=== PATIENT | female | born 1985 | race Caucasian/White ===

== ENCOUNTER → 2020-06-30 13:17 | Outpatient (CLI) | payer OTHER, SELFPAY ==
--- NOTE | ~2020-06-30 | US_ITS ---
EXAMINATION: US OB <= 14 weeks fetus DATE: 06/30/2020 13:43 INDICATION: Gestational dating TECHNIQUE: Real-time transabdominal and transvaginal obstetric ultrasound. FINDINGS: No prior studies for comparison. The uterus measures 10.7 x 6.6 x 8.3 cm. There is an intrauterine gestational sac, with pole id entified. The crown rump length measures 3.4 cm, which correlates with a estimated gestational age o f 10 weeks 2 days. heart tones are identified measuring 178 BPM. Ovaries are not visualized. IMPRESSION: 1. SL IUP with an EGA of 10 weeks, 2 days (EDC by current ultrasound of 01/24/2021). Reviewed, dictated and finalized at location A. IMPRESSION: 1. SL IUP with an EGA of 10 weeks, 2 days (EDC by current ultrasound of 021).
== END ==
PROVIDERS: Visit Provider Obstetrics & Gynecology
DX: N92.5 Other specified irregular menstruation (principal); Z3A.10 10 weeks gestation of pregnancy
CPT/HCPCS: 76801

== ENCOUNTER 2020-07-16 20:15 | Observation (INO) | payer OTHER, SELFPAY ==
[2020-07-16 20:06] VITALS: BP 136/64; PULSE 74; RESP 18; TEMP 36.6; O2SAT 100
--- NOTE | 2020-07-16 20:11 | PC.NURSE ---
OB was called and they determined this patient should be brought to them. After triage, this patient was taken to OB via wheelchair by forensic science technician.
[2020-07-16 20:21] VITALS: TEMP 36.6
[2020-07-16 20:22] VITALS: BP 115/79; PULSE 157
[2020-07-16 20:26] VITALS: PULSE 66; O2SAT 100
[2020-07-16 20:30] VITALS: BMI 28.3
--- NOTE | 2020-07-16 21:31 | OBADM ---
This patient, Nikki Tomlinson, admitted to the OB room OB Post 117 for observation. Patient/family oriented to hospital policies and general routines including ID bracelet, bed and alarms, visiting hours, pain management, procedures, bathroom and other care routines, personal items, smoking policy, room service/diet, and visiting hours. Patient/Family are encouraged to report perceived risks to care and to ask questions if they do not understand what they are told or what they should do.
--- NOTE | 2020-07-30 17:24 | PM.OBTRLD ---
OB - Triage/Final Diagnosis Visit Information Comments/Additional reasons for admission: I have assessed the risk for this patient, Nikki Tomlinson, and determined that she would benefit from observation care. Final Diagnosis (1) Vaginal discharge during : Code(s): O26.899 - Other specified related conditions, unspecified trimester; N89.8 - Other specified noninflammatory disorders of vagina Status: Acute
== END 2020-07-16 21:14 | disposition home or self-care (01) ==
PROVIDERS: Admitting Provider Obstetrics & Gynecology; PCP Family Medicine; Visit Provider Obstetrics & Gynecology
DX: O26.891 Other specified pregnancy related conditions, first trimester (principal); N89.8 Other specified noninflammatory disorders of vagina; Z3A.12 12 weeks gestation of pregnancy
CPT/HCPCS: 84112; G0378; G0379

== ENCOUNTER 2020-09-06 07:54 | Emergency (ER) | payer OTHER, SELFPAY ==
[2020-09-06 07:56] VITALS: BP 137/77; PULSE 95; RESP 16; TEMP 36.9; O2SAT 100
[2020-09-06 09:18] VITALS: BP 112/57; PULSE 70; RESP 16; O2SAT 100
--- NOTE | 2020-09-06 09:21 | PC.NURSE ---
Pt assisted to bathroom to urinate. She denies vaginal bleeding or blood in urine
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
[2020-09-06 10:48] VITALS: BP 113/55; PULSE 81; RESP 15; O2SAT 100
== END 2020-09-06 10:52 | disposition home or self-care (01) ==
PROVIDERS: Emergency Provider Emergency Medicine; PCP Family Medicine
DX: O26.892 Other specified pregnancy related conditions, second trimester (principal); V43.53XA Car driver injured in collision with pick-up truck in traffic accident, initial encounter; Y92.410 Unspecified street and highway as the place of occurrence of the external cause
CPT/HCPCS: 99282

== ENCOUNTER → 2020-09-20 16:34 | Outpatient (CLI) | payer OTHER, SELFPAY ==
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
== END ==
PROVIDERS: PCP Family Medicine; Visit Provider Family Medicine
DX: O9A.212 Injury, poisoning and certain other consequences of external causes complicating pregnancy, second trimester (principal); M54.6 Pain in thoracic spine; V89.2XXA Person injured in unspecified motor-vehicle accident, traffic, initial encounter; Z3A.20 20 weeks gestation of pregnancy; M50.93 Cervical disc disorder, unspecified, cervicothoracic region
CPT/HCPCS: 72070

== ENCOUNTER 2020-12-21 13:30 | Outpatient (RCR) | payer OTHER, SELFPAY ==
[2020-10-12 14:54] VITALS: BP_SYST 170
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
--- NOTE | 2020-10-17 12:10 | PCPTNOTE ---
Patient called and states she will not be able to make it to appointment due to a work meeting.
--- NOTE | 2020-11-09 09:53 | PCPTNOTE ---
Patient called & cancelled scheduled appointment this date due to having to work.
--- NOTE | 2020-11-27 13:49 | PCPTNOTE ---
Patient called & cancelled scheduled appointment this date due to work.
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
== END 2020-12-22 12:52 | disposition home or self-care (01) ==
LOC: ANHPT 13:30
PROVIDERS: PCP Family Medicine; Visit Provider Family Medicine
DX: M54.6 Pain in thoracic spine (principal); M54.30 Sciatica, unspecified side; V87.7XXA Person injured in collision between other specified motor vehicles (traffic), initial encounter
CPT/HCPCS: 97014; 97110; 97140; 97162; 97530; G0283

== ENCOUNTER 2021-01-17 08:05 | Inpatient (IN) | payer OTHER, SELFPAY ==
[2021-01-17] VITALS (168 sets, daily range): BP systolic 62–170; BP diastolic 34–127; PULSE 65–130; RESP 16–18; TEMP 36.6–37.3; O2SAT 87–100; BMI 33.0
[2021-01-17] MEDS: OXYTOCIN 30 UNITS/NS 500 ML 30 UNITS/500 ML BAG IV CONT (09:10)
[2021-01-17] MEDS: LACTATED RINGERS 1,000 ML 125 ML IV CONT ×2 (09:10→14:15)
[2021-01-17 09:12] LABS: Basophils Absolute Auto 0.1 K/mm3 (0.0-0.1); Basophils Percent Auto 0.5 % (0.2-1.2); Eosinophils Absolute Auto 0.1 K/mm3 (0-0.3); Eosinophils Percent Auto 0.6 % (0-4.4); Hematocrit 37.3 % (37.0-47.0); Hemoglobin 12.4 g/dL (12.0-15.0); Immature Granulocyte Absolute 0.19 K/mm3 (0.00-0.031); Immature Granulocyte Percent A 1.7 % (0-0.5); Lymphocytes Absolute Auto 1.93 K/mm3 (0.9-3.2); Lymphocytes Percent Auto 17.4 % (18.3-44.2); Mean Corpuscular HGB Conc 33.2 g/dl (32-36); Mean Corpuscular Hemoglobin 31.9 pg (26-34); Mean Corpuscular Volume 95.9 fl (80-100); Mean Platelet Volume 10.2 fl (7.4-10.4); Monocytes Absolute Auto 0.9 K/mm3 (0.1-0.6); Monocytes Percent Auto 7.8 % (2.6-8.5); Platelet Count Result 156 k/mm3 (150-375); Red Blood Count 3.89 M/mm3 (4.2-5.4); Red Cell Distribution Width 14.2 % (11.5-14.5); White Blood Count 11.1 K/mm3 (4.5-10.0)
--- NOTE | 2021-01-17 09:19 | LDADM ---
This patient, Nikki Tomlinson, was admitted to Labor/Delivery/Recovery 109 on 01/17/21 at 08:05. Plans for labor, pain management and were discussed with patient. Patient/family oriented to hospital policies and general routines including ID bracelet, bed and alarms, visiting hours, pain management, procedures, bathroom and other care routines, personal items, smoking policy, room service/diet and guest tray routines, infant security routines, and visiting hours. Patient/Family are encouraged to report perceived risks to care and to ask questions if they do not understand what they are told or what they should do. See OBIX for further documentation.
--- NOTE | 2021-01-17 12:22 | PM.IMHP ---
H&P: HPI History of Present Illness Date/Time: 01/17/21 12:06 Nikki is a 35yo @ 39.0wks (GRABIEL 01/24/21) who presents for elective induction of labor. She reports good movement. No VB or LOF. She has been having irregular contractions. She has had regular care. Her is complicated by: - Undesired future fertility; desires LSC salpingectomy - CMV non-immune - Mild anemia on iron daily - Anxiety/depression; previously on celexa Chief Complaint: induction of labor Review of Systems Review of Systems: All systems reviewed & are unremarkable except as noted in HPI and below (HPI) [facility] Past Medical History Medical History (Updated 01/17/21 @ 12:11 by Porsha Henson MD) Anxiety Depression Hyperhidrosis Retinitis pigmentosa Rosacea Family History Family History Mother Diabetes mellitus Hypertension Patient's mother is in good health Father Hypertension Patient's father is in good health Grandparent Cerebrovascular accident Family history of lung cancer Social History Social History Smoking status: Never smoker Second hand tobacco smoke exposure: No Alcohol intake: current Drinks per week: 1 Substance use: never Substance use type: does not use Gender identity (if verbalized by the patient): Female Spiritual care concerns: No Agree to blood products: Yes Meds Home Medications and Allergies Home Medications Medication Instructions Recorded Confirmed Type -xrod fum-folic ac-om3 1 pkg PO DAILY 07/16/20 01/17/21 History famotidine 40 mg PO DAILY 12/28/20 12/28/20 History Allergies Allergy/AdvReac Type Severity Reaction Status Date / Time Penicillins Allergy Unknown Rash Verified 09/18/20 08:54 Sulfa (Sulfonamide Allergy Unknown Rash Verified 09/18/20 08:54 Antibiotics) Vital Signs Vital Signs - 24 hr 01/17/21 09:00 01/17/21 09:31 01/17/21 10:00 Temperature 37.1 C Pulse Rate 86 88 Blood Pressure 126/71 125/68 01/17/21 10:31 01/17/21 11:00 01/17/21 11:30 Temperature Pulse Rate 81 81 69 Blood Pressure 106/59 L 105/54 L 113/60 01/17/21 12:00 Temperature Pulse Rate 90 Blood Pressure 128/75 Exam Const: General: cooperative, healthy appearing, comfortable and no acute distress Resp: Effort & Inspection: normal respiratory effort Cardio: Rate: regular rate GI: Inspection: non-distended GI Palp: No abdominal tenderness and Yes Soft to palpation : Other: FHT's: 140's/ mod alex/ + accels/ no decels - cat 1 TOCO: ctx's q2min Presentation: cephalic Membranes: AROM, clear 1220 Cervix: 3.5/50/-3 Skin: General skin exam: normal color Neuro: General: patient oriented x3 Extrem: General: normal to inspection Psych: Appearance: grossly normal Affect: normal affect Attitude: cooperative H&P: Results Labs Labs: Short CBC 01/17/21 Range/Units 08:55 WBC 11.1 H (4.5-10.0) K/mm3 Hgb 12.4 (12.0-15.0) g/dL Hct 37.3 (37.0-47.0) % Plt Count 156 (150-375) k/mm3 Assessment and Plan Assessment and plan (1) Encounter for elective induction of labor: Code(s): Z34.90 - Encounter for supervision of normal , unspecified, unspecified trimester Status: Acute (2) : Qualifiers: Weeks of gestation: 39 weeks Qualified Code(s): Z3A.39 - 39 weeks gestation of Code(s): Z34.90 - Encounter for supervision of normal , unspecified, unspecified trimester Status: Acute Additional Plan - Admitted to L&D for IOL - Pitocin per protocol - AROM performed on this exam - Continuous monitoring - Anesthesia consult PRN pain - GBS negative
--- NOTE | 2021-01-17 12:22 | WPDHPUPDATE1 ---
History and Physical Update Update Date/Time: 01/17/21 12:22 History and Physical has been reviewed, including an updated exam of the patient. There are NO changes in the patient's condition. Risks, benefits, and alternatives have been discussed and questions answered. Patient agrees to proceed with procedure.
--- NOTE | 2021-01-17 16:13 | WPDANESEPP ---
Anes - Eval Pre Procedure Procedure: labor pain management Date/Time: 01/17/21 16:13 Surgeon: geovanna Preop Diagnosis: pain during labor Pre Op Diagnosis: iol Patient Data Age: 35 Gender: F Height: 1.63 m Weight: 87.5 kg Last Vital Signs Temp 99.1 F 01/17/21 12:00 Pulse 70 01/17/21 16:00 BP 89/38 L 01/17/21 16:00 Pulse Ox 100 01/17/21 16:13 Allergies Allergy/AdvReac Type Severity Reaction Status Date / Time Penicillins Allergy Unknown Rash Verified 09/18/20 08:54 Sulfa (Sulfonamide Allergy Unknown Rash Verified 09/18/20 08:54 Antibiotics) Home Medications Medication Instructions Recorded Confirmed Type [id number] fum-folic ac-om3 1 pkg PO DAILY 07/16/20 01/17/21 History famotidine 40 mg PO DAILY 12/28/20 12/28/20 History Laboratory Tests 01/17/21 01/17/21 01/17/21 08:55 08:55 08:55 WBC 11.1 K/mm3 H K/mm3 (4.5-10.0) RBC 3.89 M/mm3 L M/mm3 (4.2-5.4) Hgb 12.4 g/dL g/dL (12.0-15.0) Hct 37.3 % % (37.0-47.0) MCV 95.9 fl fl (80-100) MCH 31.9 pg pg (26-34) MCHC 33.2 g/dl g/dl (32-36) RDW 14.2 % % (11.5-14.5) Plt Count 156 k/mm3 k/mm3 (150-375) MPV 10.2 fl fl (7.4-10.4) Immature Gran % (Auto) 1.7 % H % (0-0.5) Neut % (Auto) 72.0 % % (45.5-73.1) Lymph % (Auto) 17.4 % L % (18.3-44.2) Roosevelt % (Auto) 7.8 % % (2.6-8.5) Eos % (Auto) 0.6 % % (0-4.4) Baso % (Auto) 0.5 % % (0.2-1.2) Lymph # (Auto) 1.93 K/mm3 K/mm3 (0.9-3.2) Roosevelt # (Auto) 0.9 K/mm3 H K/mm3 (0.1-0.6) Eos # (Auto) 0.1 K/mm3 K/mm3 (0-0.3) Baso # (Auto) 0.1 K/mm3 K/mm3 (0.0-0.1) Abs Immat Gran (auto) 0.19 K/mm3 H K/mm3 (0.00-0.031) Absolute Neuts (auto) 8.0 K/mm3 H K/mm3 (1.3-6.7) Absolute Nucleated RBC 0.0 K/mm3 K/mm3 (0.0-0.012) Nucleated RBC % 0.0 % % (0.0-0.2) RPR Pending Blood Type O Positive Antibody Screen Negative : gestational age (edc 01/24/21) Patient hx anesthesia problems: none Family hx anesthesia problems: none Results Review: All pre-operative results and documents have been reviewed as part of the pre-operative evaluation. [facility] Past Medical History Medical History (Updated 01/17/21 @ 16:13 by Shanti Murphy CRNA) Anxiety Depression Hyperhidrosis Retinitis pigmentosa Rosacea Family History Family History Mother Diabetes mellitus Hypertension Patient's mother is in good health Father Hypertension Patient's father is in good health Grandparent Cerebrovascular accident Family history of lung cancer Social History Social History Smoking status: Never smoker Second hand tobacco smoke exposure: No Alcohol intake: current Drinks per week: 1 Substance use: never Substance use type: does not use Gender identity (if verbalized by the patient): Female Spiritual care concerns: No Agree to blood products: Yes Exam Day of Procedure 01/17/21 16:13
--- NOTE | 2021-01-17 19:04 | PM.OBPNLAB ---
Pain Control Date/time seen: 01/17/21 19:04 Pain control: epidural Pelvic Exam Dilation (cm): 5 Effacement (%): 70 station: -2 Amniotic membrane status: Ruptured Contractions Monitor mode: Internal Contraction frequency: 2 Status status: Category l Assessment and Plan Pitocin rate (mU/min): 18 Assessment: induction ongoing Plan: continuous present management
--- NOTE | 2021-01-17 22:16 | P.PCNOB_ITS ---
OB - Delivery Note Procedure Delivery date: 01/17/21 events: Labor Induction Intrapartal events: None Induction method: per pitocin protocol Delivery augmentation: rupture of membranes Delivery monitor: external FHT and internal uterine Route of delivery: Laceration Description: None Quantitative Blood Loss (ml): 200 Anesthesia type: Epidural Disposition: floor [place] Baby Date of : 01/17/21 Time of : 22:01 Weeks of gestation at delivery: 39 Infant gender: Male Weight (pounds): 7 Weight (ounces): 9 presentation: vertex (occiput posterior) Placenta delivery description: Expressed cord vessel description: 3 Vessels and Delayed Cord Clamping score one minute: 9 score five minutes: 9 Narrative: Nikki progressed to complete dilation and began pushing with good effort. She pushed for approximately 30 minutes. She delivered the head direct occiput posterior over intact perineum. She delivered the infant's shoulders and body without complication. The infant had spontaneous cry and was immediately placed skin to skin. Delayed cord clamping was performed. The umbilical cord was then clamped and cut. With Pitocin running and gentle downward traction on the cord, the placenta delivered without complications. Bimanual massage was performed and good fundal tone with minimal bleeding was noted. Patient was examined and no lacerations were noted. Fundal tone was normal with minimal bleeding. Sponge, lap, instrument, and needle counts were correct at the end of the procedure. Mom and baby were left bonding in the birthing suite in a stable condition.
[2021-01-17] MEDS: OXYTOCIN 30 UNITS/NS 500 ML 30 UNITS/500 ML BAG 125 UNITS IV CONT (22:29)
[2021-01-17] MEDS: IBUPROFEN 600 MG TABLET PO (23:00)
[2021-01-18] VITALS (7 sets, daily range): BP systolic 99–128; BP diastolic 46–82; PULSE 65–88; RESP 16–20; TEMP 36.3–37.4; O2SAT 99–100
[2021-01-18] MEDS: BENZOCAINE 20% AER SPR (*SP) 56 GM CAN 1 SPRAY TOPICAL (00:11)
[2021-01-18] MEDS: WITCH HAZEL 40 PADS 1 PAD TOPICAL (00:11)
--- NOTE | 2021-01-18 00:39 | PC.NURSE ---
Patient transferred to post room # 292 per wheelchair. Support person present. Oriented to unit, room, information board, rooming in, admission packet and security measures. Patient verbalizes understanding.
[2021-01-18] MEDS: LANOLIN (LANSINOH) 7.5 GM CREAM 1 APPLIC TOPICAL (05:28)
[2021-01-18] MEDS: IBUPROFEN 600 MG TABLET PO (05:28)
[2021-01-18 05:45] LABS: Hematocrit 31.7 % (37.0-47.0)
[2021-01-18 06:22] LABS: Rapid Plasma Reagin Non-Reactive (NonReactive)
--- NOTE | 2021-01-18 08:12 | WPDANLDPN2 ---
Anes-Prog Note L&D Date/Time: 01/18/21 08:12 Comfortable throughout: labor and delivery Neuraxial method: epidural Epidural/Spinal procedure site: clean & non-tender Neuro status: Neuro function grossly intact. Cardiovascular status: normal Respiratory status: normal Airway patency: baseline Mental status: baseline Post-Op hydration status: normal Vital Signs: Last Vital Signs Temp 36.7 C 01/18/21 04:30 Pulse 84 01/18/21 04:30 Resp 20 01/18/21 04:30 BP 114/62 01/18/21 04:30 Pulse Ox 100 01/17/21 21:59 Pain score (VAS): 0 I/O: Intake & Output 01/17/21 01/18/21 01/18/21 23:59 07:59 15:59 Output Total 200 137 Balance -200 -137 Post-procedural complaints: none Patient feedback: Patient satisfied with anesthetic care.
--- NOTE | 2021-01-18 08:45 | PC.NURSE ---
Mother called out for assist with feeding, for observation latch is correct. . Infant is able to freely thrust tongue past gum ridge and flange both lips. Skin is intact on both nipples, no redness and bruising noted. Reviewed infant feeding cues, frequencies, duration of feedings, feeding elimination flow sheet, and signs of adequate intake. Demonstrated stimulation techniques to wake for feeding. Assisted with infant to breast. Reviewed positioning/alignment in cross cradle, holding breast in ?U? hold and guided asymmetrical latch on. Reviewed rational for each. able to latch correctly within a few attempts. Infant nursed eagerly with steady draws and frequent swallowing noted, some pausing noted. Reviewed signs of a correct latch, effective nursing and suck swallow ratio. Suggested mother stimulate while feeding to increase stimulation for milk supply, for increased intake and to assist with maintaining deep latch. Infant was able to maintain latch without discomfort to mother. Demonstrated how to adjust latch more deeply while feeding if needed. Nipple care reviewed of lanolin after feedings, warm compresses as needed, gel pads provided and reviewed care and cleaning. Instructed mother to call out for RN assistance if she is unable to latch for feeding or she has discomfort with nursing. Instructed feeding should be initiated three hours from start of last feeding or if feeding cues are noted before. Mother voiced understanding of information shared.
--- NOTE | 2021-01-18 12:40 | PM.OBPNVD ---
OB - PN: Subj Subjective Date/time seen: 01/18/21 12:34 PPD#1 Nikki reports doing well today. She reports cramping pains controlled with PO meds. She reports her bleeding is light. She has tolerated regular diet, ambulated, voided, and passed gas. She is breast feeding without issue. She has already showered. She would like her son to be circumcised. She would like to go home tomorrow. She denies CP, SOB, fever, chills, DOBBINS, vision changes, N/V, palpitations, or dizziness. OB - PN: Obj Data Labs CBC & Chem 7: 01/18/21 05:29 Labs: Laboratory Results - last 24 hr 01/17/21 01/18/21 08:55 05:29 Hgb 11.0 L Hct 31.7 L RPR Non-reactive OB - PN A/P Assessment and Plan (1) Normal vaginal delivery of third : Code(s): O80 - Encounter for full-term uncomplicated delivery Status: Acute Plan day: 1 Plan: routine care and discharge home (tomorrow AM) Comments: - f/u in clinic if 4 wks - ER return precautions: fever, n/v/abd pain, bleeding, signs of HTN - Pelvic rest; take meds as prescribed. Time Spent With Patient Time: Total time spent is greater than 50% in coordination of care (as documented) at patient's floor/unit and/or counseling patient: Review of Systems Review of Systems: All systems reviewed & are unremarkable except as noted in HPI and below (HPI) Exam Const: General: cooperative, healthy appearing, comfortable and no acute distress Resp: Effort & Inspection: normal respiratory effort Auscultation: clear to auscultation bilaterally Cardio: Rate: regular rate GI: Inspection: normal to inspection and non-distended GI Palp: No abdominal tenderness and Yes Soft to palpation Auscultation: normal bowel sounds : Other: fundus firm Skin: General skin exam: normal color Neuro: General: patient oriented x3 Extrem: General: normal to inspection Psych: Appearance: grossly normal Affect: normal affect Attitude: cooperative
[2021-01-18] MEDS: ACETAMINOPHEN 325 MG TABLET 650 MG PO (20:55)
[2021-01-18] MEDS: DIBUCAINE 1% OINTMENT 30 GM TUBE 1 APPLIC TOPICAL (20:57)
[2021-01-19 08:55] VITALS: BP 138/67; PULSE 65; RESP 16; TEMP 36.7; O2SAT 100
[2021-01-20 09:38] VITALS: BP 134/73; PULSE 74; RESP 20; TEMP 36.8; O2SAT 100
--- NOTE | 2021-01-28 13:40 | PM.OBDSVD ---
DS: Admitting Diagnosis Discharge Date 01/19/21 Admitting Diagnosis induction of labor DS: Discharge Diagnosis Discharge Diagnosis (1) Normal vaginal delivery of third : Code(s): O80 - Encounter for full-term uncomplicated delivery Status: Acute OB - DS: Summary OB Procedures : Ultrasound OB Procedures Intrapartum: Spontaneous Vag Delivery OB Procedures: : None Peripartum Data Delivery Method: Natural Vaginal Laceration Description: None complications: none 1: Gender: Male Disposition of : home Status at Discharge Functional status at discharge: independent ambulation Overall status at discharge: patient is back to baseline Time Spent with Patient Time attestation: Total time spent providing and/or coordinating discharge services: Time spent: Less than 30 minutes Exam Const: General: cooperative, healthy appearing, comfortable and no acute distress Resp: Effort & Inspection: normal respiratory effort Auscultation: clear to auscultation bilaterally Cardio: Rate: regular rate GI: Inspection: normal to inspection and non-distended GI Palp: No abdominal tenderness and Yes Soft to palpation Auscultation: normal bowel sounds : Other: fundus firm Skin: General skin exam: normal color Neuro: General: patient oriented x3 Extrem: General: normal to inspection Psych: Appearance: grossly normal Affect: normal affect Attitude: cooperative Discharge Plan Discharge Attending physician on discharge: Porsha Henson Discharging Clinician: Porsha Henson Anticipated Discharge Date/Time: 01/19/21 08:00 Patient Disposition: Home, Self-Care Activity: pelvic rest Diet: as tolerated and regular Discharge Instructions: Education: Mom and Baby Guide Given to: Mother Follow-Up: Call your delivering provider's office for an appointment to be seen in: 4 Weeks Mom and baby should come to the [facility] for the follow-up appointment. Appointment Date/Time: January 20, 2021 at 9:00 am What to expect at your follow-up visit: Blood Pressure Check Physical Assessment Call [phone] if you are unable to keep your appointment time. BREAST CARE: * Wear a snug supportive bra. * For engorgement discomfort: Breast Feeding: * Apply warm moist washcloths * Express milk as needed to relieve engorgement * Wear loose clothing Bottle Feeding: * May apply ice packs * For sore nipples: * Identify correct latch-on * Apply warm moist washcloths before and after nursing * Air dry nipples after nursing * May apply Lansinoh cream to nipples EPISIOTOMY/PERINEAL CARE: * Until bleeding stops, use your ander bottle after urinating * Change your pad frequently throughout the day * You may take sitz baths several times a day (fill your bathtub with warm water and soak for 20 minutes.) Do NOT bathe in the water * No tub baths until seen by your physician - You may shower ACTIVITY: * Rest as much as possible. * Do not exercise or lift anything heavier than your baby (such as laundry or other children.) * Avoid stairs or driving as much as possible. * Do not put anything into the vagina. No douching, tampons, or sexual activity until seen by physician. NOTIFY PHYSICIAN IF YOU HAVE ANY QUESTIONS OR IF ANY OF THE FOLLOWING SYMPTOMS OCCUR: * If your episiotomy or incision becomes red, swollen, or more painful than what you have experienced in the hospital. * If your vaginal bleeding becomes foul smelling. * If your vaginal bleeding becomes more heavy than a period or if your bleeding changes from pink to bright red. However, you may pass an occasional walnut-sized clot once or twice for the first week . * If you experience a sharp, shooting pain in you calves. * If you discover a hard, reddened area on your br
== END 2021-01-19 13:03 | disposition home or self-care (01) | DRG 807 ==
LOC: ANHLDR 08:09 → ANHOB2 01-18 01:03
PROVIDERS: Admitting Provider Obstetrics & Gynecology; PCP Family Medicine; Visit Provider Obstetrics & Gynecology
DX: O99.02 Anemia complicating childbirth (principal); Z37.0 Single live birth; D64.9 Anemia, unspecified; O99.344 Other mental disorders complicating childbirth; F41.8 Other specified anxiety disorders; Z3A.39 39 weeks gestation of pregnancy
CPT/HCPCS: 36415; 85014; 85018; 85025; 86592; 86850; 86900; 86901; A9270; J2590; J2795; J7120

== ENCOUNTER 2021-02-15 11:38 | Outpatient (CLI) | payer OTHER, SELFPAY ==
--- NOTE | ~2021-02-15 | US_ITS ---
EXAMINATION: US pelvic complete DATE: 02/15/2021 12:12 INDICATION: 4 weeks presenting with pelvic pain with standing and excessive bleeding TECHNIQUE: Multiple transabdominal and endovaginal sonographic images of the pelvis were obtained. COMPARISON: None. FINDINGS: The uterus measures 6.5 x 6.0 x 7.7 cm. The endometrial complex measures 6 mm in thickness. The righ t ovary is not visualized. The left ovary measures 3.2 x 2.4 x 2.1 cm. And basilar flow with arterial waveforms at the left ovary. There is a trace amount of likely physiologic free fluid in the pelvis. IMPRESSION: 1. Normal pelvic ultrasound with trace amount of likely physiologic free fluid in the pelvis. Reviewed, dictated and finalized at location B. OF ADVERTISING
== END 2021-02-15 11:39 | disposition home or self-care (01) ==
LOC: ANHIMG 11:39
PROVIDERS: PCP Family Medicine; Visit Provider Obstetrics & Gynecology
DX: R10.2 Pelvic and perineal pain (principal)
CPT/HCPCS: 76856